=== PATIENT | male | born 1980 | race Caucasian/White ===

== ENCOUNTER 2017-09-24 00:19 | Emergency (ER) | payer OTHER ==
[2017-09-24 00:30] VITALS: BP 159/90; PULSE 69; O2SAT 99
--- NOTE | 2017-09-24 00:40 | ERPHSYRPT ---
- History of Present Illness Time Seen by Provider: 09/24/17 00:34 Source: patient Exam Limitations: no limitations Patient Subjective Stated Complaint: pt was stuck with a needle during c section Triage Nursing Assessment: pt alert and oriented, asnwers questions approp. small puncture to lt middle finger. 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 Past medical history is positive for high blood pressure Timing/Duration: today (around 1207 this morning) Severity: mild Modifying Factors: Improves With: other (patient clean the area thoroughly of his left third finger) Associated Symptoms: denies symptoms Allergies/Adverse Reactions: No Known Drug Allergies Allergy (Unverified 12/08/14 06:25) Home Medications: No Reportable Medications [No Reported Medications] 12/08/14 [History] Hx Tetanus, Diphtheria Vaccination/Date Given: Yes Hx Influenza Vaccination/Date Given: Yes Hx Pneumococcal Vaccination/Date Given: No Immunizations Up to Date: Yes - Review of Systems Constitutional: No Fever, No Chills Eyes: No Symptoms Ears, Nose, & Throat: No Symptoms Respiratory: No Cough, No Dyspnea Cardiac: No Chest Pain, No Edema, No Syncope Abdominal/Gastrointestinal: No Abdominal Pain, No Nausea, No Vomiting, No Diarrhea Genitourinary Symptoms: No Dysuria Musculoskeletal: No Back Pain, No Neck Pain Skin: Other (needlestick left third finger) Neurological: No Dizziness, No Focal Weakness, No Sensory Changes Psychological: No Symptoms Endocrine: No Symptoms All Other Systems: Reviewed and Negative - Past Medical History Neurological History: No Pertinent History ENT History: No Pertinent History Cardiac History: Hypertension Respiratory History: No Pertinent History Endocrine Medical History: No Pertinent History Musculoskeletal History: No Pertinent History GI Medical History: No Pertinent History History: No Pertinent History Psycho-Social History: No Pertinent History Male Reproductive Disorders: No Pertinent History - Past Surgical History Past Surgical History: Yes Neuro Surgical History: No Pertinent History Cardiac: No Pertinent History Respiratory: No Pertinent History Gastrointestinal: Appendectomy Genitourinary: No Pertinent History Musculoskeletal: No Pertinent History Male Surgical History: No Pertinent History Other Surgical History: tonsillectomy tubes in ears - Social History Smoking Status: Never smoker Exposure to second hand smoke: No Drug Use: none Patient Lives Alone: No - Nursing Vital Signs Nursing Vital Signs: Initial Vital Signs Temperature 97.9 F 09/24/17 00:22 Pulse Rate 69 09/24/17 00:22 Respiratory Rate 16 09/24/17 00:22 Blood Pressure 159/90 09/24/17 00:22 O2 Sat by Pulse Oximetry 99 09/24/17 00:22 Pain Scale Pain Intensity 0 - Physical Exam General Appearance: no apparent distress, alert Eye Exam: PERRL/EOMI, eyes nml inspection Ears, Nose, Throat Exam: normal ENT inspection, TMs normal, pharynx normal, moist mucous membranes Neck Exam: normal inspection, non-tender, supple, full range of motion Respiratory Exam: normal breath sounds, lungs clear, No respiratory distress Cardiovascular Exam: regular rate/rhythm, normal heart sounds, normal peripheral pulses Gastrointestinal/Abdomen Exam: soft, normal bowel sounds, No tenderness, No mass Back Exam: normal inspection, normal range of motion, No CVA tenderness, No vertebral tenderness Extremity Exam: normal inspection, normal range of motion, pelvis stable Neurologic Exam: alert, oriented x 3, cooperative, normal mood/affect, nml cerebellar function, nml station & gait, sensation nml, No motor deficits Skin Exam: other (ppatient with a needlestick left third finger barely visible) SpO2 Interpretation: normal (99%) SpO2: 99 Oxygen Delivery: Room Air - Course Nursing assessment & vital signs reviewed: Yes Ordered Tests: Active Orders 24 hr Category Date Time Status Wound Care STAT Care 09/24/17 00:41 Active - Progress Progress: improved Progress Note: 09/24/17 00:37 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 The patient is in no distress he cleaned the area he has had hepatitis B immunization, his tetanus is up to date. He is not interested in getting HIV prophylaxis The source patient is in the hospital. Will go ahead and obtain appropriate laboratory workup per needlestick protocol. - Departure Time of Disposition: 00:44 Departure Disposition: Home Clinical Impression: Accidental needlestick injury with exposure to body fluid Condition: Fair Critical Care Time: No Referrals: [facility] [Primary Care Provider] - Additional Instructions: Return home. Clean area and apply bacitracin until healed. Follow-up with employee health. Call tomorrow and schedule a follow up appointment. Return for acute distress or for severe symptoms.
[2017-09-25 04:52] LABS: HIV Antigen/Antibody Combo Non Reactive (Non Reactive)
[2017-09-25 07:26] LABS: Hepatitis C Antibody by EIA Non Reactive (Non Reactive)
[2017-09-25 07:27] LABS: Hepatitis B Sur Ag Screen Non Reactive (Non Reactive)
== END 2017-09-24 01:07 | disposition home or self-care (01) ==
LOC: ED 00:19
DX: Z77.21 Contact with and (suspected) exposure to potentially hazardous body fluids (principal); W46.1XXA Contact with contaminated hypodermic needle, initial encounter; Y92.234 Operating room of hospital as the place of occurrence of the external cause; Y99.0 Civilian activity done for income or pay
CPT/HCPCS: 36415; 86317; 86701; 86702; 86803; 87340; 87389; 99283